=== PATIENT | female | born 1960 | race Caucasian/White ===

== ENCOUNTER 2016-05-27 11:18 | Outpatient (CLI) | payer MEDICARE, MEDICAID | END 2016-05-27 11:19 | disposition home or self-care (01) | DX: E66.01 Morbid (severe) obesity due to excess calories (principal); Z86.2 Personal history of diseases of the blood and blood-forming organs and certain disorders involving the immune mechanism; I10 Essential (primary) hypertension; E55.9 Vitamin D deficiency, unspecified; E88.81 Metabolic syndrome and other insulin resistance ==

== ENCOUNTER 2016-08-18 10:16 | Outpatient (CLI) | payer MEDICARE, MEDICAID ==
--- NOTE | 2016-08-21 09:52 | Mammography Report ---
DIGITAL BILATERAL SCREENING MAMMOGRAM: 08/18/2016 CLINICAL HISTORY: A 55-year-old female in for routine screening mammogram. There was a question about a grandmother having breast cancer. The patient has had no breast surgeries. COMPARISON: 09/04/2010, 03/01/2014, 03/04/2015. TECHNIQUE: Craniocaudad and oblique lateral views of each breast were obtained with Hologic full fiel d digital mammography. Some additional craniocaudad and oblique lateral views of the breasts were obt ained because of their large size. FINDINGS: The breast parenchyma is almost entirely composed of fat. No significant clusters of calci fication are seen. No significant masses are noted. No significant change is seen. IMPRESSION: THE BREASTS APPEAR RADIOGRAPHICALLY BENIGN. BIRADS CATEGORY 1-NEGATIVE. RECOMMENDATION: ANNUAL BILATERAL SCREENING MAMMOGRAPHY. STANDARD QUALIFYING STATEMENTS 1. This examination was reviewed with the aid of Computer-Aided Detection (CAD). 2. A negative or benign imaging report should not delay biopsy if clinically suspicious findings are present. Consider surgical consultation if warranted. More than 5% of cancers are not identified by i maging. 3. Dense breasts may obscure an underlying neoplasm. JOB #: [id number] EXT JOB #:[id number]
== END 2016-08-18 10:17 | disposition home or self-care (01) ==
LOC: DI.S 10:16
PROVIDERS: ATTEND Nurse Practitioner Family
DX: Z12.31 Encounter for screening mammogram for malignant neoplasm of breast (principal)
CPT/HCPCS: 77067

== ENCOUNTER 2016-12-30 13:24 | Outpatient (CLI) | payer MEDICARE, MEDICAID ==
--- NOTE | 2016-12-31 11:39 | XRAY Report ---
TWO VIEW BILATERAL HANDS: 12/30/2016 CLINICAL INDICATION: Chronic pain. COMPARISON: Left hand films 01/12/2012. FINDINGS: Frontal and lateral views of the bilateral hands demonstrate bilateral osteoarthritis, worst at the first carpometacarpal joint of the left hand. There is no evidence of acute fracture or dislocation. No radiopaque foreign body is seen in the soft tissues. IMPRESSION: LEFT WORSE THAN RIGHT OSTEOARTHRITIS. MTDD
== END 2016-12-30 13:25 | disposition home or self-care (01) ==
LOC: DI.S 13:24
DX: M19.042 Primary osteoarthritis, left hand (principal); M19.041 Primary osteoarthritis, right hand

== ENCOUNTER 2017-06-08 11:58 | Outpatient (CLI) | payer MEDICARE, MEDICAID ==
[2017-06-08 17:49] LABS: BUN - BLOOD UREA NITROGEN 19 mg/dL (6-20); CALCIUM 9.3 mg/dL (8.5-10.3); CARBON DIOXIDE - CO2 31 mmol/L (21-32); CHLORIDE 100 mmol/L (101-111); CHOL/HDL RATIO 3.5 (<4.4); CHOLESTEROL 227 mg/dL; CREATININE 0.6 mg/dL (0.4-1.0); GFR - MDRD 104 (>89); GLUCOSE 98 mg/dL (70-100); HDL CHOLESTEROL 65 mg/dL; LDL CHOLESTEROL,CALCULATED 144 mg/dL; LDL/HDL RATIO 2.2 (<4.4); SODIUM 140 mmol/L (135-145); VLDL CHOLESTEROL 18 mg/dL
[2017-06-08 18:41] LABS: HEMOGLOBIN A1C 0.53 g/dL; HEMOGLOBIN A1C % 5.4 % (4.6-6.2)
== END 2017-06-08 11:59 | disposition home or self-care (01) ==
LOC: LAB.F 11:58
PROVIDERS: ATTEND Nurse Practitioner Family
DX: I10 Essential (primary) hypertension (principal); R73.01 Impaired fasting glucose; E55.9 Vitamin D deficiency, unspecified; E88.81 Metabolic syndrome and other insulin resistance
CPT/HCPCS: 36415; 80048; 80061; 82306; 83036; 83721

== ENCOUNTER 2017-12-24 14:51 | Emergency (ER) | payer MEDICARE, MEDICAID ==
--- NOTE | 2017-12-24 15:33 | ED Physician Documentation ---
PD HPI ABD PAIN - Stated complaint Stated Complaint: AB PX EPISODES - Chief complaint Chief Complaint: Abd Pain - History obtained from History obtained from: Patient - History of Present Illness Timing - onset: Yesterday Timing - details: Intermittant (had episode of upper abd pain yesterday that was severe and lasted an hour or so. No pain today. Tried to make appt with PMD but was referred to ER. Patient says she has had similar episodes every few/several months or so and are severe and self-limit dissipate over an hour or two. Interval time without pains like this.) Quality: Aching, Sharp, Stabbing, Pain Location: RUQ, Epigastric Radiation: Upper back Improved by: Position (lying on side). No: Vomiting Worsened by: Eating, Breathing, Position, Palpation Associated symptoms: Nausea, Vomiting. No: Fever, Hematemesis, Diarrhea Similar symptoms before: No diagnosis Recently seen: Not recently seen Review of Systems Constitutional: denies: Fever, Chills Eyes: denies: Loss of vision, Decreased vision Ears: denies: Loss of hearing Nose: denies: Rhinorrhea / runny nose, Congestion Throat: denies: Sore throat Respiratory: denies: Cough GI: reports: Abdominal Pain. denies: Abdominal Swelling : denies: Dysuria, Frequency, Discharge Skin: denies: Rash, Lesions PD PAST MEDICAL HISTORY - Past Medical History Cardiovascular: None Respiratory: None GI: None - Present Medications Home Medications: Ambulatory Orders Medication Instructions Recorded Confirmed Dicyclomine [Bentyl] 10 mg PO QID PRN #10 capsule 12/24/17 HYDROcod/ACETAM 5/325 [Logan 5/325] 1 tab PO Q6H PRN #10 tablet 12/24/17 - Allergies Allergies/Adverse Reactions: Allergies Allergy/AdvReac Type Severity Reaction Status Date / Time No Known Drug Allergies Allergy Verified 12/24/17 15:30 PD ED PE NORMAL - Vitals Vital signs reviewed: Yes - General General: Alert and oriented X 3, No acute distress, Well developed/nourished - HEENT HEENT: PERRL (nonicteric), Pharynx benign - Neck Neck: Supple, no meningeal sign, No adenopathy - Cardiac Cardiac: RRR, No murmur - Respiratory Respiratory: Clear bilaterally - Abdomen Abdomen: Normal bowel sounds, Soft, Non distended, No organomegaly - Rectal Rectal: Deferred - Back Back: No CVA TTP - Derm Derm: Normal color, Warm and dry, No rash - Extremities Extremities: No deformity, No tenderness to palpate, No edema, No calf tenderness / cord - Neuro Neuro: Alert and oriented X 3, No motor deficit, Normal speech Results - Vitals Vitals: Oxygen O2 Source Room air - Labs Labs: Laboratory Tests 12/24/17 12/24/17 16:27 16:27 WBC 9.0 RBC 4.70 Hgb 13.7 Hct 40.7 MCV 86.6 MCH 29.2 MCHC 33.7 RDW 14.7 Plt Count 204 MPV 7.8 L Neut # (Auto) 4.3 Lymph # (Auto) 3.6 H [place] # (Auto) 0.7 Eos # (Auto) 0.4 Baso # (Auto) 0.1 Absolute Nucleated RBC 0.00 Nucleated RBC % 0.0 Sodium 135 Potassium 3.8 Chloride 100 L Carbon Dioxide 28 Anion Gap 7.0 BUN 16 Creatinine 0.6 Estimated GFR (MDRD) 104 Glucose 85 Calcium 8.8 Total Bilirubin 0.3 AST 17 ALT 21 Alkaline Phosphatase 72 Total Protein 7.0 Albumin 4.0 Globulin 3.0 Albumin/Globulin Ratio 1.3 Lipase 37 PD MEDICAL DECISION MAKING - ED course Complexity details: reviewed results (she has gallstone without signs of current infection. Her symptoms sound c/w biliary colic and are infrequent. Will give Rx for meds to use PRN and to f/u with Surgery re: indications and followup of possible biliary colit. ), considered differential, d/w patient - Sepsis Event Vital Signs: Oxygen O2 Source Room air Departure - Departure Disposition: 01 Home, Self Care Clinical Impression: Biliary colic Abdominal pain Qualifiers: Abdominal location: right upper quadrant Qualified Code(s): R10.11 - Right upper quadrant pain Condition: Stable Record reviewed to determine appropriate education?: Yes Instructions: ED Gallstone W Biliary Colic Follow-Up: Delaney Willoughby ARNP [Primary Care Provider] - James Robles MD [Provider Admit Priv/Credential] - Prescriptions: Dicyclomine [Bentyl] 10 mg PO QID PRN #10 capsule PRN Reason: Spasms HYDROcod/ACETAM 5/325 [Logan 5/325] 1 tab PO Q6H PRN #10 tablet PRN Reason: Pain Comments: You do have a gallstone on your ultrasound which is a pretty common finding. It does not necessarily mean that is the cause of your pain. However your episodes sound very consistent with gallbladder spasms. Otherwise your blood tests look normal so does not sound like pancreas or liver. At this point see if you have other episodes. Can use Tylenol or ibuprofen or even better dicyclomine antispasmodic and hydrocodone pain medicine if needed for the severe episodes. Return if you have a prolonged episode that does not improve with medicines. Follow-up with surgery if you have repeated episodes frequently enough to be considering gallbladder removal. Discharge Date/Time: 12/24/17 18:04
[2017-12-24 16:33] LABS: BASOPHILS # (AUTO) 0.1 10^3/uL (0.0-0.1); BASOPHILS % (AUTO) 1.1 %; EOSINOPHILS # (AUTO) 0.4 10^3/uL (0.0-0.7); EOSINOPHILS % (AUTO) 4.1 %; HGB - HEMOGLOBIN 13.7 g/dL (12.0-16.0); LYMPHOCYTES # (AUTO) 3.6 10^3/uL (1.5-3.5); LYMPHOCYTES % (AUTO) 40.2 %; MEAN CORPUSCULAR HEMOGLOBIN 29.2 pg (27.0-31.0); MEAN CORPUSCULAR HGB CONC 33.7 g/dL (32.0-36.0); MEAN CORPUSCULAR VOLUME 86.6 fL (81.0-99.0); MEAN PLATELET VOLUME 7.8 fL (7.9-10.8); MONOCYTES # (AUTO) 0.7 10^3/uL (0.0-1.0); MONOCYTES % (AUTO) 7.4 %; NEUTROPHILS # (AUTO) 4.3 10^3/uL (1.5-6.6); NEUTROPHILS % (AUTO) 47.2 %; PLT - PLATELET COUNT 204 10^3/uL (130-450); RED CELL DISTRIBUTION WIDTH 14.7 % (12.0-15.0)
[2017-12-24 16:46] LABS: ALBUMIN/GLOBULIN RATIO 1.3 (1.0-2.2); BILIRUBIN,TOTAL 0.3 mg/dL (0.2-1.0); CALCIUM 8.8 mg/dL (8.5-10.3); CREATININE 0.6 mg/dL (0.4-1.0)
--- NOTE | 2017-12-24 17:51 | Ultrasound Report ---
Reason: upper abd pain episodes Procedure Date: 12/24/2017 Accession Number: [id number] / [id number] Procedure: US - Abdomen Limited CPT Code: FULL RESULT: EXAM: ABDOMEN ULTRASOUND LIMITED, RUQ EXAM DATE: 12/24/2017 05:30 PM. CLINICAL HISTORY: Upper abd pain episodes. COMPARISON: None. TECHNIQUE: Real-time scanning was performed with static images obtained. FINDINGS: Liver: Diffusely echogenic. Right lobe is 15.5 cm. Main portal vein flow: Hepatopetal. Gallbladder: 1 cm non-mobile gallstone in the gallbladder neck. No abnormal wall thickening or sonographic Martines sign. Biliary System: CBD measures 5.5 mm. No intrahepatic biliary ductal dilatation. Other: Right kidney measures 10.2 cm without hydronephrosis. IMPRESSION: Cholelithiasis without sonographic evidence for cholecystitis. Hepatic steatosis. RADIA
[2017-12-24 17:54] VITALS: BP 137/84
== END 2017-12-24 18:04 | disposition home or self-care (01) ==
LOC: ED 14:51
DX: K80.70 Calculus of gallbladder and bile duct without cholecystitis without obstruction (principal); K76.0 Fatty (change of) liver, not elsewhere classified
CPT/HCPCS: 36415; 76705; 80053; 83690; 85025; 99283

== ENCOUNTER 2017-12-28 10:30 | Outpatient (CLI) | payer MEDICARE, MEDICAID | END 2017-12-28 10:31 | disposition home or self-care (01) | LOC: RT.S 10:30 | PROVIDERS: ATTEND Nurse Practitioner Family | DX: R07.89 Other chest pain (principal); I10 Essential (primary) hypertension | CPT/HCPCS: 93005 ==

== ENCOUNTER 2018-11-08 12:45 | Outpatient (CLI) | payer MEDICARE, MEDICAID ==
[2018-11-08 17:17] LABS: BASOPHILS # (AUTO) 0.1 10^3/uL (0.0-0.1); BASOPHILS % (AUTO) 1.1 %; EOSINOPHILS # (AUTO) 0.4 10^3/uL (0.0-0.7); EOSINOPHILS % (AUTO) 3.5 %; HGB - HEMOGLOBIN 15.9 g/dL (12.0-16.0); LYMPHOCYTES # (AUTO) 4.3 10^3/uL (1.5-3.5); LYMPHOCYTES % (AUTO) 38.5 %; MEAN CORPUSCULAR HEMOGLOBIN 28.5 pg (27.0-31.0); MEAN CORPUSCULAR HGB CONC 31.7 g/dL (32.0-36.0); MEAN CORPUSCULAR VOLUME 89.9 fL (81.0-99.0); MEAN PLATELET VOLUME 10.9 fL (7.9-10.8); MONOCYTES # (AUTO) 0.7 10^3/uL (0.0-1.0); MONOCYTES % (AUTO) 6.5 %; NEUTROPHILS # (AUTO) 5.6 10^3/uL (1.5-6.6); NEUTROPHILS % (AUTO) 49.9 %; PLT - PLATELET COUNT 299 10^3/uL (130-450); RED BLOOD COUNT 5.57 10^6/uL (4.20-5.40); RED CELL DISTRIBUTION WIDTH 14.1 % (12.0-15.0); WHITE BLOOD COUNT 11.1 x10^3/uL (4.8-10.8)
[2018-11-08 17:38] LABS: ALBUMIN 4.5 g/dL (3.2-5.5); ALBUMIN/GLOBULIN RATIO 1.2 (1.0-2.2); ALKALINE PHOSPHATASE 72 IU/L (42-121); ALT ALANINE AMINOTRANSFERASE 23 IU/L (10-60); AST ASPARTATE AMINOTRANSFERASE 18 IU/L (10-42); BILIRUBIN,TOTAL 0.6 mg/dL (0.2-1.0); BUN - BLOOD UREA NITROGEN 15 mg/dL (6-20); CALCIUM 9.6 mg/dL (8.5-10.3); CARBON DIOXIDE - CO2 28 mmol/L (21-32); CHLORIDE 102 mmol/L (101-111); CHOL/HDL RATIO 3.7 (<4.4); CHOLESTEROL 233 mg/dL; CREATININE 0.8 mg/dL (0.4-1.0); GFR - MDRD 74 (>89); GLUCOSE 112 mg/dL (70-100); HDL CHOLESTEROL 63 mg/dL; LDL CHOLESTEROL,CALCULATED 153 mg/dL; LDL/HDL RATIO 2.4 (<4.4); SODIUM 141 mmol/L (135-145); TOTAL PROTEIN 8.4 g/dL (6.7-8.2); VLDL CHOLESTEROL 17 mg/dL
[2018-11-08 17:54] LABS: HB2 TOTAL 16.9 g/dL; HEMOGLOBIN A1C 0.61 g/dL; HEMOGLOBIN A1C % 5.5 % (4.6-6.2)
== END 2018-11-08 12:46 | disposition home or self-care (01) ==
LOC: LAB.S 12:45
PROVIDERS: ATTEND Physician Assistant Medical
DX: I10 Essential (primary) hypertension (principal); Z13.220 Encounter for screening for lipoid disorders; Z13.1 Encounter for screening for diabetes mellitus
CPT/HCPCS: 36415; 80053; 80061; 83036; 83721; 85025

== ENCOUNTER 2020-02-13 12:15 | Outpatient (CLI) | payer MEDICARE, MEDICAID ==
[2020-02-13 14:54] LABS: ALKALINE PHOSPHATASE 74 IU/L (42-121); ALT ALANINE AMINOTRANSFERASE 24 IU/L (10-60); AST ASPARTATE AMINOTRANSFERASE 17 IU/L (10-42); CALCIUM 9.5 mg/dL (8.5-10.3); CARBON DIOXIDE - CO2 28 mmol/L (21-32); CHLORIDE 100 mmol/L (101-111); CHOL/HDL RATIO 3.8 (<4.4); CHOLESTEROL 214 mg/dL; GLUCOSE 87 mg/dL (70-100); HDL CHOLESTEROL 57 mg/dL; LDL CHOLESTEROL,CALCULATED 137 mg/dL; LDL/HDL RATIO 2.4 (<4.4); SODIUM 140 mmol/L (135-145); VLDL CHOLESTEROL 20 mg/dL
[2020-02-13 15:29] LABS: BASOPHILS # (AUTO) 0.1 10^3/uL (0.0-0.1); EOSINOPHILS # (AUTO) 0.2 10^3/uL (0.0-0.7); EOSINOPHILS % (AUTO) 2.8 %; HGB - HEMOGLOBIN 15.4 g/dL (12.0-16.0); LYMPHOCYTES # (AUTO) 3.2 10^3/uL (1.5-3.5); LYMPHOCYTES % (AUTO) 44.2 %; MEAN CORPUSCULAR HEMOGLOBIN 28.8 pg (27.0-31.0); MEAN CORPUSCULAR HGB CONC 32.1 g/dL (32.0-36.0); MEAN CORPUSCULAR VOLUME 89.9 fL (81.0-99.0); MEAN PLATELET VOLUME 11.1 fL (7.9-10.8); MONOCYTES # (AUTO) 0.5 10^3/uL (0.0-1.0); MONOCYTES % (AUTO) 6.7 %; NEUTROPHILS # (AUTO) 3.2 10^3/uL (1.5-6.6); NEUTROPHILS % (AUTO) 44.9 %; PLT - PLATELET COUNT 249 10^3/uL (130-450); RED BLOOD COUNT 5.34 10^6/uL (4.20-5.40); RED CELL DISTRIBUTION WIDTH 13.7 % (12.0-15.0); WHITE BLOOD COUNT 7.2 x10^3/uL (4.8-10.8)
[2020-02-13 15:47] LABS: ALBUMIN 4.5 g/dL (3.2-5.5); ALBUMIN/GLOBULIN RATIO 1.4 (1.0-2.2); BILIRUBIN,TOTAL 0.4 mg/dL (0.2-1.0); BUN - BLOOD UREA NITROGEN 14 mg/dL (6-20); CREATININE 0.5 mg/dL (0.4-1.0); TOTAL PROTEIN 7.8 g/dL (6.7-8.2)
== END 2020-02-13 12:16 | disposition home or self-care (01) ==
LOC: LAB.S 12:15
PROVIDERS: ATTEND Registered Nurse
DX: I10 Essential (primary) hypertension (principal); E88.81 Metabolic syndrome and other insulin resistance; F41.8 Other specified anxiety disorders; E66.01 Morbid (severe) obesity due to excess calories; J45.909 Unspecified asthma, uncomplicated; G47.30 Sleep apnea, unspecified; F90.9 Attention-deficit hyperactivity disorder, unspecified type
CPT/HCPCS: 36415; 80053; 80061; 83721; 84443; 85025

== ENCOUNTER 2020-05-27 11:04 | Outpatient (CLI) | payer MEDICARE, MEDICAID ==
[2020-05-27 12:49] VITALS: BP 131/78
--- NOTE | 2020-05-27 12:49 | SLEEP CARE CONSULTATION ---
Information from patient questionnaire entered by Evita Salazar. I have reviewed and concur with the information entered by Evita Salazar. This document represents the service I personally performed and the decisions made by me, Ariel Andujar MD, [facility]. History of Present Illness Service Date and Time: 05/27/2020 1104 Reason for Visit: New patient Chief Complaint: reports: Observed pauses in breathing, Frequent awakenings at night Date of Onset: Years Usual bedtime: 11 - 12 AM Time it takes to fall asleep: Depends-usually to TV Snores at night: Yes (Probably) Observed to quit breathing while asleep: Yes Sleeps alone due to snoring: No (N/A) Number of times waking at night: Depends Reasons for waking at night: reports: Gasping for air, Pain, Bathroom Toss, Turn, or Twitch while sleeping: Yes (If in bed) Recalls having dreams: Yes (Sometimes) Usually gets out of bed at: 8 - 9 AM Feels refreshed in the morning: No Morning headache: No Sleepy or fatigued during the day: Yes Ever fallen asleep while driving: No Takes day naps: Yes (Sometimes) Dreams during day naps: Yes Prior sleep studies: Yes Year and Where: ~ 2011 - 2013? Additional HPI information: I have the pleasure of seeing Ms. Douglas today regarding obstructive sleep apnea. As you know, she is a 59 year old lady who was diagnosed with the sleep- disordered breathing almost 10 years ago at the [facility]. She cannot recall the severity. She was prescribed a CPAP which she used for only a week. She quit because of aerophagia. She wore nasal pillows. She used it so little that she could not tell whether it was helpful or not. She continues to snore loudly. She wakes up gasping for air at night despite sleeping in a recliner. During the day, she is sleepy. [place] Sleepiness Scale score is 10. - Parasomnia Symptoms Ever been unable to move upon waking from sleep: Yes Ever felt weak in the knees when startled or emotional: No Bothered by creepy, crawly, restless sensations in legs: Yes Problems with memory or concentration: Yes Subjective Initial [place] Sleepiness Scale score: 10 (in 2020) Past Medical History Past Medical History: reports: Claustrophobia, Arthritis, Fibromyalgia, Anxiety, Asthma, Depression, Attention deficit Social History The patient's occupation is not employed - disabled. Patient is and lives in [place]. Have you smoked in the past 12 months: Yes Cigarettes per day (20/pack): 5 Alcohol use: Yes Alcohol amount and frequency: ? quarterly? Caffeine use: Yes Caffeine amount and frequency: 2 coffee in AM Family History Family history of sleep disordered breathing: Yes (Everyone) Family Hx Sleep Apnea: Mother: Snoring, Father: Snoring, Sibling: Snoring Allergies and Home Medications Drug allergies reviewed: Yes Home medication list reviewed: Yes (razodone, gabapentin, Wllbutrin, lexapro, celebrex) Review of Systems Weight gain over past 5 years: 100 Cardiovascular: reports: leg or foot swelling Respiratory: reports: shortness of breath, wheeze, sputum production Urinary: reports: incontinence, frequency, urgency Neurological: reports: gait or balance problems Psychiatric: reports: Attention Deficit Hyperactivity, anxiety, depression, claustrophobia Ear/Nose/Throat: reports: nasal congestion, sinus problems, dry mouth/throat, tonsillectomy, wisdom teeth removed Endocrine: reports: sluggishness (tired), too hot or cold, excessive thirst, increased appetite Musculoskeletal: reports: joint pain, neck pain, back pain, joint swelling, muscle pain or cramping, mobility problems Immunologic: reports: sneezing (runny nose), itching Physical Exam Vital signs obtained and entered by: Dr. Andujar Blood Pressure: 131/78 Cuff size: regular Heart Rate: 67 O2 Saturation: 94 Height: 5 ft 2 in Weight: 346 lb Body Mass Index: 63.3 BMI Classification: Morbidly Obese Neck circumference: 17 Mood/affect: Normal HEENT: No craniofacial malformation Nostrils: patent to airflow Impression and Plan IMPRESSION: 1. Obstructive Sleep Apnea-Hypopnea Syndrome, as previously diagnosed but the severity is unknown. She is presently untreated and appears to be symptomatic for loud and irregular snoring, frequent awakenings during the night, unrefreshed sleep, cognitive impairment, and daytime hypersomnolence. Narrow oropharynx and obesity are common predisposing factors for obstructive sleep apnea-hypopnea syndrome. I recommend proceeding to polysomnography to confirm the diagnosis and to reassess severity. I informed the patient of what the sleep studies involve and after some discussion, she would like to first have a home sleep apnea test (HSAT). Plan: 1. Schedule a home sleep apnea test (HSAT). 2. Avoid long distance driving or when feeling sleepy. 3. Avoid alcohol, sedative and muscle relaxant around bedtime. 4. Attempt to lose weight. 5. Return for a follow up after the test. Visit Type: In Office Time Spent with Patient (minutes): 15 Provider Statement: I spent 100% of the Face to Face Visit with the patient with greater than 50% spent counseling the patient and coordination of care.
== END 2020-05-27 11:05 | disposition home or self-care (01) ==
LOC: SC 11:04
PROVIDERS: ATTEND Internal Medicine Pulmonary Disease
DX: G47.33 Obstructive sleep apnea (adult) (pediatric) (principal); E66.01 Morbid (severe) obesity due to excess calories; Z68.44 Body mass index [BMI] 60.0-69.9, adult
CPT/HCPCS: 99202; G0463; 99212

== ENCOUNTER 2020-06-20 11:15 | Outpatient (CLI) | payer MEDICARE, MEDICAID | END 2020-06-20 11:16 | disposition home or self-care (01) | LOC: SC 11:15 | PROVIDERS: ATTEND Internal Medicine Pulmonary Disease | DX: G47.33 Obstructive sleep apnea (adult) (pediatric) (principal); R09.02 Hypoxemia; E66.01 Morbid (severe) obesity due to excess calories; Z68.44 Body mass index [BMI] 60.0-69.9, adult | CPT/HCPCS: G0399 ×2; 95806 ==

== ENCOUNTER 2020-07-29 11:12 | Outpatient (CLI) | payer MEDICARE, MEDICAID ==
--- NOTE | 2020-07-30 23:17 | SLEEP CARE CONSULTATION ---
Information from patient questionnaire entered by Evita Salazar. I have reviewed and concur with the information entered by Evita Salazar. This document represents the service I personally performed and the decisions made by me, Ariel Andujar MD, [facility]. History of Present Illness Service Date and Time: 07/29/2020 1112 Initial [place] Sleepiness Scale score: 10 (in 2020) Current [place] Sleepiness Scale score: 6 Additional HPI information: HPI: Ms. Douglas returned for follow up of the home sleep apnea test (HSAT) she had on 06/24/2020. The test shows moderate obstructive sleep apnea-hypopnea with an AHI of 24.7 and leyda oxygen saturation of 72%. The patient only slept supine during this study. The patient was informed of these findings. I explained to her the pathophysiology behind obstructive sleep apnea. We then spent quite a bit of time discussing different treatment options. For mild obstructive sleep apnea, surgery and oral appliance are alternatives to nasal CPAP therapy but in moderate or severe cases, nasal CPAP is the most effective and reliable treatment. After some discussion, she opted to use CPAP again. Sleep Study - Results Type of Sleep Study: Home sleep study Prior sleep studies: Yes Year and Where: ~ 2011 - 2013? Allergies and Home Medications Drug allergies reviewed: Yes Home medication list reviewed: Yes Review of Systems Review of systems same as previous: Yes Physical Exam Height: 5 ft 2 in Weight: 346 lb Body Mass Index: 63.3 BMI Classification: Morbidly Obese Impression and Plan IMPRESSION: 1. Obstructive Sleep Apnea-Hypopnea Syndrome, moderate, associated with moderate hypoxemia and sleep fragmentation. As mentioned above, the patient will be started on CPAP set at 4 - 8 cmH2O because she quit in the past due to aerophagia. Depending on her response and compliance she may be brought back for an overnight CPAP titration study. PLAN: 1. Prescription made for an autoCPAP, heated humidifier, and related supplies. 2. Attempt to lose weight. 3. Return for follow up after one month of using the CPAP. Counseling Topics: Weight control Visit Type: In Office Time Spent with Patient (minutes): 15 Provider Statement: I spent 100% of the Face to Face Visit with the patient with greater than 50% spent counseling the patient and coordination of care.
== END 2020-07-29 11:13 | disposition home or self-care (01) ==
LOC: SC 11:12
PROVIDERS: ATTEND Internal Medicine Pulmonary Disease
DX: G47.33 Obstructive sleep apnea (adult) (pediatric) (principal); E66.01 Morbid (severe) obesity due to excess calories; Z68.44 Body mass index [BMI] 60.0-69.9, adult
CPT/HCPCS: 99212; G0463

== ENCOUNTER 2021-05-07 13:25 | Outpatient (CLI) | payer MEDICARE, MEDICAID ==
[2021-05-07 20:55] LABS: BASOPHILS # (AUTO) 0.1 10^3/uL (0.0-0.1); BASOPHILS % (AUTO) 0.8 %; EOSINOPHILS # (AUTO) 0.2 10^3/uL (0.0-0.7); EOSINOPHILS % (AUTO) 2.6 %; HCT - HEMATOCRIT 46.4 % (37.0-47.0); HGB - HEMOGLOBIN 14.6 g/dL (12.0-16.0); LYMPHOCYTES # (AUTO) 3.1 10^3/uL (1.5-3.5); MEAN CORPUSCULAR HEMOGLOBIN 28.6 pg (27.0-31.0); MEAN CORPUSCULAR HGB CONC 31.5 g/dL (32.0-36.0); MEAN CORPUSCULAR VOLUME 90.8 fL (81.0-99.0); MEAN PLATELET VOLUME 10.3 fL (7.9-10.8); MONOCYTES # (AUTO) 0.7 10^3/uL (0.0-1.0); NEUTROPHILS # (AUTO) 4.3 10^3/uL (1.5-6.6); NEUTROPHILS % (AUTO) 51.1 %; PLT - PLATELET COUNT 250 10^3/uL (130-450); RED BLOOD COUNT 5.11 10^6/uL (4.20-5.40); WHITE BLOOD COUNT 8.5 x10^3/uL (4.8-10.8)
[2021-05-07 21:17] LABS: ALBUMIN 4.4 g/dL (3.2-5.5); ALBUMIN/GLOBULIN RATIO 1.2 (1.0-2.2); ALKALINE PHOSPHATASE 54 IU/L (42-121); ALT ALANINE AMINOTRANSFERASE 29 IU/L (10-60); AST ASPARTATE AMINOTRANSFERASE 21 IU/L (10-42); BILIRUBIN,TOTAL 0.6 mg/dL (0.2-1.0); BUN - BLOOD UREA NITROGEN 13 mg/dL (6-20); CALCIUM 9.1 mg/dL (8.5-10.3); CARBON DIOXIDE - CO2 30 mmol/L (21-32); CHLORIDE 96 mmol/L (101-111); CHOL/HDL RATIO 4.3 (<4.4); CHOLESTEROL 235 mg/dL; CREATININE 0.7 mg/dL (0.4-1.0); GFR - MDRD 86 (>89); GLUCOSE 89 mg/dL (70-100); HDL CHOLESTEROL 55 mg/dL; LDL CHOLESTEROL,CALCULATED 162 mg/dL; LDL/HDL RATIO 2.9 (<4.4); POTASSIUM 4.3 mmol/L (3.5-5.0); SODIUM 134 mmol/L (135-145); TOTAL PROTEIN 8.2 g/dL (6.7-8.2); TRIGLYCERIDES 89 mg/dL; VLDL CHOLESTEROL 18 mg/dL
== END 2021-05-07 13:26 | disposition home or self-care (01) ==
LOC: LAB.S 13:25
PROVIDERS: ATTEND Registered Nurse
DX: I10 Essential (primary) hypertension (principal); J45.909 Unspecified asthma, uncomplicated; E88.81 Metabolic syndrome and other insulin resistance; Z13.220 Encounter for screening for lipoid disorders
CPT/HCPCS: 36415; 80053; 80061; 83721; 85025